=== PATIENT | female | born 1995 | race Hispanic/Latino ===

== ENCOUNTER 2024-03-16 02:36 | Inpatient (IN) | payer BC ==
[2024-03-16 02:52] VITALS: BMI 42.9
[2024-03-16 06:46] LABS: Creatinine, Urine 107.03 mg/dL (47-110); Protein, Urine Random Quant Less than 10 mg/dL (1-14)
[2024-03-16] MEDS ORDERED: Misoprostol 200 MCG TAB PR PRN (08:11)
[2024-03-16] MEDS ORDERED: Calcium Gluc 4.6 MEQ/10 ML (100 MG/ML) SLOW IVP PRN (08:11)
[2024-03-16] MEDS ORDERED: hydrALAZINE 20 MG/ML VIAL SLOW IVP PRN ×3 (08:11)
[2024-03-16] MEDS ORDERED: Tranexamic Acid 1,000 MG/10 ML VIAL IVP PRN (08:11)
[2024-03-16] MEDS ORDERED: Ondansetron PF 4 MG/2 ML Vial IVP PRN (08:11)
[2024-03-16] MEDS ORDERED: fentaNYL 50 mcg/mL 1 mL Vial SLOW IVP PRN (08:11)
[2024-03-16] MEDS ORDERED: Promethazine HCl 25 MG/ML VIAL IM PRN (08:11)
[2024-03-16] MEDS ORDERED: Docusate 100 MG CAP PO PRN (08:11)
[2024-03-16] MEDS ORDERED: Carboprost 250 MCG/ML AMP IM PRN (08:11)
[2024-03-16] MEDS ORDERED: Diphenoxylate HCl/Atropine Tablet PO PRN (08:11)
[2024-03-16] MEDS ORDERED: Lorazepam 2 MG/ML VIAL SLOW IVP PRN (08:11)
[2024-03-16] MEDS ORDERED: Labetalol HCl 100 MG/20 ML VIAL SLOW IVP PRN ×2 (08:11)
[2024-03-16] MEDS ORDERED: Oxytocin 30 units/NS 500 ML 500 ML IV SCH (08:15)
[2024-03-16] MEDS ORDERED: Glucagon 1 MG/ML KIT IM PRN (08:18)
[2024-03-16] MEDS ORDERED: Insulin Lispro 100 UNIT/ML 10 ML VIAL SC PRN (08:18)
[2024-03-16] MEDS ORDERED: Dextrose 5% in Water 1,000 ML IV PRN (08:18)
[2024-03-16] MEDS ORDERED: Dextrose 50% Abboject 50 ML SYRINGE SLOW IVP PRN (08:18)
[2024-03-16] MEDS: metFORMIN 500 MG TAB PO SCH (08:33)
[2024-03-16] MEDS: Magnesium Sulfate 20 gm/500 ml 20 GM/500 ML BAG IVPB SCH (08:33)
[2024-03-16] MEDS: Betamet Acet/Betamet Na Ph 30 MG/5 ML VIAL IM SCH (08:33)
[2024-03-16] MEDS: Lantus 1000 UNITS/10 ML VIAL SC SCH ×2 (10:08→20:50)
[2024-03-16] MEDS: Insulin Lispro 100 UNIT/ML 10 ML VIAL SC PRN (11:58)
[2024-03-18] MEDS: Lantus 1000 UNITS/10 ML VIAL SC SCH ×2 (08:19→21:30)
[2024-03-18 14:41] LABS: Group B Streptococcus by PCR Not Detected (NotDetected)
[2024-03-20 12:09] LABS: #Basophils 0.01 10x3/uL (0.0-0.2); #Eosinophils 0.06 10x3/uL (0.0-0.5); #Monocytes 0.77 10x3/uL (0.0-1.1); #Neutrophils 8.39 10x3/uL (1.5-8.4); %Basophils 0.1 % (0.0-2.0); %Eosinophils 0.5 % (0.0-6.0); %Lymphocytes 26.1 % (18.0-47.0); %Monocytes 6.1 % (0.0-10.0); %Neutrophils 66.4 % (40.0-75.0); Hematocrit 32.3 % (34.9-44.5); Hemoglobin 10.2 g/dL (12.0-15.5); Mean Corpuscular HGB CONC 31.6 g/dL (32.0-36.0); Mean Corpuscular Hemoglobin 25.8 pg (27.0-33.0); Mean Corpuscular Volume 81.6 fL (81.6-98.3); Mean Platelet Volume 10.8 fL (7.4-10.4); Platelet Count 292 10x3/uL (150-450); RBC Distribution Width 13.2 % (11.5-14.5); Red Blood Cell (RBC) Count 3.96 10x6/uL (3.90-5.03); White Blood Cell (WBC) Count 12.6 10x3/uL (3.5-10.5)
[2024-03-20 12:29] LABS: ALT (SGPT) 11 U/L (8-55); AST (SGOT) 10 U/L (5-34); Alkaline Phosphatase 77 U/L (40-110); Anion Gap 15 mmol/L (10-20); BUN (Urea Nitrogen) 9 mg/dL (7.0-18.7); Bilirubin, Total 0.7 mg/dL (0.2-1.2); Calc. Creatinine Clearance 274 mL/min (70-130); Calcium 9.6 mg/dL (7.8-10.44); Carbon Dioxide 20 mmol/L (22-29); Chloride 104 mmol/L (98-107); Estimated GFR 127; Glucose 89 mg/dL (70-105); Potassium 3.8 mmol/L (3.5-5.1); Sodium 135 mmol/L (136-145)
[2024-03-20 14:25] LABS: Creatinine, Urine 28.82 mg/dL (47-110); Protein, Urine Random Quant Less than 10 mg/dL (1-14)
[2024-03-21] MEDS: Acetaminophen 500 MG TAB PO PRN (14:58)
[2024-03-21 15:47] VITALS: BMI 42.9
[2024-03-21 16:18] LABS: Urine Total Volume 2250 mL (600-1600)
[2024-03-21 16:31] LABS: Protein, Urine Less than 10 mg/dL (1-14)
[2024-03-21 21:33] VITALS: BP 128/80; TEMP 98.3
== END 2024-03-21 21:25 | disposition home or self-care (01) | DRG 831 ==
LOC: CSHLD/OP 02:36 → CSHLD 09:43 → CSHANTE 03-17 15:40
PROVIDERS: ADMIT Family Medicine; ATTEND Family Medicine
DX: O24.113 Pre-existing type 2 diabetes mellitus, in pregnancy, third trimester (principal); O11.3 Pre-existing hypertension with pre-eclampsia, third trimester; Z3A.30 30 weeks gestation of pregnancy; Z79.82 Long term (current) use of aspirin; Z79.4 Long term (current) use of insulin; Z79.84 Long term (current) use of oral hypoglycemic drugs
CPT/HCPCS: 36416; 76819; 80053; 82570; 84156; 85025; 87653; J0702; J1815; J3475

== ENCOUNTER 2024-05-02 15:58 | Inpatient (IN) | payer BC ==
[2024-05-02 16:52] VITALS: BMI 45.7
[2024-05-02] MEDS ORDERED: hydrALAZINE 20 MG/ML VIAL SLOW IVP PRN (17:10)
[2024-05-02] MEDS ORDERED: Methylergonovine 0.2 MG/ML VIAL IM PRN (17:10)
[2024-05-02] MEDS ORDERED: Ibuprofen 800 MG TAB PO PRN (17:10)
[2024-05-02] MEDS ORDERED: Diphenoxylate HCl/Atropine Tablet PO PRN (17:10)
[2024-05-02] MEDS ORDERED: Promethazine HCl 25 MG/ML VIAL IM PRN (17:10)
[2024-05-02] MEDS ORDERED: Lidocaine 1% (PF) 30 ML VIAL SC PRN (17:10)
[2024-05-02] MEDS ORDERED: Ondansetron PF 4 MG/2 ML Vial IVP PRN (17:10)
[2024-05-02] MEDS ORDERED: Misoprostol 100 MCG TAB VAG SCH (17:15)
[2024-05-02] MEDS ORDERED: Insulin Lispro 100 UNIT/ML 10 ML VIAL SC PRN ×2 (17:20)
[2024-05-02] MEDS ORDERED: Dextrose 50% Abboject 50 ML SYRINGE SLOW IVP PRN (17:20)
[2024-05-02] MEDS ORDERED: Glucagon 1 MG/ML KIT IM PRN (17:20)
[2024-05-02] MEDS ORDERED: Dextrose 5% in Water 1,000 ML IV PRN (17:20)
[2024-05-02] MEDS: Misoprostol 100 MCG TAB PO SCH (17:40)
[2024-05-02 18:08] LABS: HBsAg Index 0.24 S/CO (0-0.99); Hep B Surf Ag - L&D Non-Reactive S/CO (NonReactive); Syphilis Antibody Nonreactive (Nonreactive); Syphilis Antibody Index 0.06 S/CO (<1.00 Non-Reactive)
[2024-05-02 18:15] LABS: #Basophils 0.02 10x3/uL (0.0-0.2); #Eosinophils 0.05 10x3/uL (0.0-0.5); #Monocytes 0.43 10x3/uL (0.0-1.1); #Neutrophils 5.68 10x3/uL (1.5-8.4); %Basophils 0.3 % (0.0-2.0); %Eosinophils 0.6 % (0.0-6.0); %Lymphocytes 20.5 % (18.0-47.0); %Monocytes 5.5 % (0.0-10.0); %Neutrophils 72.3 % (40.0-75.0); Hematocrit 33.6 % (34.9-44.5); Hemoglobin 10.8 g/dL (12.0-15.5); Mean Corpuscular HGB CONC 32.1 g/dL (32.0-36.0); Mean Corpuscular Hemoglobin 26.2 pg (27.0-33.0); Mean Corpuscular Volume 81.6 fL (81.6-98.3); Mean Platelet Volume 11.9 fL (7.4-10.4); Platelet Count 250 10x3/uL (150-450); RBC Distribution Width 16.1 % (11.5-14.5); Red Blood Cell (RBC) Count 4.12 10x6/uL (3.90-5.03); White Blood Cell (WBC) Count 7.9 10x3/uL (3.5-10.5)
[2024-05-02 18:25] LABS: ALT (SGPT) 7 U/L (8-55); AST (SGOT) 11 U/L (5-34); Alkaline Phosphatase 123 U/L (40-110); Anion Gap 15 mmol/L (10-20); BUN (Urea Nitrogen) 9 mg/dL (7.0-18.7); Bilirubin, Total 0.7 mg/dL (0.2-1.2); Calc. Creatinine Clearance 255 mL/min (70-130); Carbon Dioxide 18 mmol/L (22-29); Chloride 107 mmol/L (98-107); Estimated GFR 123; Globulin 3.5 g/dL (2.4-3.5); Glucose 140 mg/dL (70-105); Potassium 3.8 mmol/L (3.5-5.1); Protein, Total 6.5 g/dL (6.0-8.3); Sodium 136 mmol/L (136-145)
[2024-05-02] MEDS: metFORMIN 500 MG TAB PO SCH (20:53)
[2024-05-03] MEDS: Oxytocin 30 units/NS 500 ML 500 ML IV SCH (06:03)
[2024-05-03] MEDS: metFORMIN 500 MG TAB PO SCH (17:02)
[2024-05-03] MEDS: fentaNYL/Ropivacaine Epidural 100 ML ONE (18:19)
[2024-05-03] MEDS ORDERED: Moisturizing Cream (Eucerin) 113 GM JAR TOP PRN ×2 (18:31→22:22)
[2024-05-03] MEDS ORDERED: Acetaminophen 325 MG TAB PO PRN (18:31)
[2024-05-03] MEDS ORDERED: Promethazine HCl 25 MG/ML VIAL IM PRN ×2 (18:31→22:22)
[2024-05-03] MEDS ORDERED: diphenhydrAMINE 50 MG/ML VIAL IVP PRN ×2 (18:31→22:22)
[2024-05-03] MEDS ORDERED: Ondansetron PF 4 MG/2 ML Vial IVP PRN ×3 (18:31→22:22)
[2024-05-03] MEDS ORDERED: Lactated Ringer's 500 ML IV PRN (18:31)
[2024-05-03] MEDS ORDERED: ePHEDrine Sulfate 50 MG/10 ML VIAL SLOW IVP PRN (18:31)
[2024-05-03] MEDS ORDERED: Naloxone HCl 0.4 mg/ml Vial IVP PRN ×4 (18:31→22:22)
[2024-05-03] MEDS ORDERED: Communication Order-Pharmacy FS SCH ×2 (18:45→22:30)
[2024-05-03] MEDS ORDERED: fentaNYL 2 mcg/Ropivacaine 0.2% Epidural 100 ML CADD EPIDURAL SCH (18:45)
[2024-05-03] MEDS ORDERED: Famotidine/PF 20 mg/2ml Vial SLOW IVP PRN (20:50)
[2024-05-03] MEDS ORDERED: Bicitra 30 ML UDCUP PO PRN (20:50)
[2024-05-03] MEDS ORDERED: Azithromycin 500 MG in Sodium Chloride 0.9% 250 ML 250 ML IVPB SCH (21:30)
[2024-05-03] MEDS ORDERED: CEFAZOLIN 2 GM in Sodium Chloride 0.9% 100 ML IVPB SCH (21:30)
[2024-05-03] MEDS ORDERED: Naloxone HCl 0.4 mg/ml Vial IV PRN (22:22)
[2024-05-03] MEDS ORDERED: fentaNYL 50 mcg/mL 1 mL Vial SLOW IVP PRN (22:22)
[2024-05-03] MEDS ORDERED: Simethicone Chewable 80 MG TAB PO PRN (22:28)
[2024-05-03] MEDS ORDERED: Bisacodyl 10 MG SUPP PR PRN (22:28)
[2024-05-03] MEDS ORDERED: Lanolin Ointment 7 GM TUBE TOP PRN (22:28)
[2024-05-03] MEDS ORDERED: hydrALAZINE 20 MG/ML VIAL SLOW IVP PRN (22:28)
[2024-05-03] MEDS ORDERED: diphenhydrAMINE 25 MG CAP PO PRN (22:28)
[2024-05-03] MEDS ORDERED: HYDROcodone/Acetaminophen 5/325 mg Tablet PO PRN ×2 (22:28)
[2024-05-03] MEDS: Meperidine HCl/PF 25 MG (1 mL) VIAL SLOW IVP PRN (22:58)
[2024-05-03] MEDS ORDERED: Ketorolac Tromethamine 30 MG (1 mL) VIAL IVP SCH (23:30)
[2024-05-04] MEDS: Misoprostol 200 MCG TAB PR PRN (00:04)
[2024-05-04] MEDS: Diphenoxylate HCl/Atropine Tablet PO PRN (00:42)
[2024-05-04] MEDS: Carboprost 250 MCG/ML AMP IM PRN (00:43)
[2024-05-04] MEDS: Tranexamic Acid 1,000 MG/10 ML VIAL IVP PRN (01:04)
[2024-05-04 01:13] LABS: #Basophils 0.02 10x3/uL (0.0-0.2); #Eosinophils 0.01 10x3/uL (0.0-0.5); #Neutrophils 12.08 10x3/uL (1.5-8.4); %Basophils 0.1 % (0.0-2.0); %Eosinophils 0.1 % (0.0-6.0); %Monocytes 3.6 % (0.0-10.0); %Neutrophils 86.7 % (40.0-75.0); Hematocrit 27.5 % (34.9-44.5); Mean Corpuscular HGB CONC 32.7 g/dL (32.0-36.0); Mean Corpuscular Hemoglobin 26.5 pg (27.0-33.0); Mean Corpuscular Volume 81.1 fL (81.6-98.3); Mean Platelet Volume 11.9 fL (7.4-10.4); Platelet Count 231 10x3/uL (150-450); RBC Distribution Width 15.9 % (11.5-14.5); Red Blood Cell (RBC) Count 3.39 10x6/uL (3.90-5.03); White Blood Cell (WBC) Count 13.9 10x3/uL (3.5-10.5)
[2024-05-04 01:29] LABS: D-Dimer Test 3.82 mcg/mL (0.19-0.50); PTT 26.9 sec (22.0-33.0); Prothrombin Time 10.5 sec (9.5-12.1)
[2024-05-04 04:03] LABS: #Basophils 0.02 10x3/uL (0.0-0.2); #Eosinophils 0.06 10x3/uL (0.0-0.5); #Monocytes 0.64 10x3/uL (0.0-1.1); #Neutrophils 11.82 10x3/uL (1.5-8.4); %Basophils 0.1 % (0.0-2.0); %Eosinophils 0.4 % (0.0-6.0); %Lymphocytes 8.5 % (18.0-47.0); %Monocytes 4.6 % (0.0-10.0); %Neutrophils 85.8 % (40.0-75.0); Hematocrit 28.1 % (34.9-44.5); Hemoglobin 9.2 g/dL (12.0-15.5); Mean Corpuscular HGB CONC 32.7 g/dL (32.0-36.0); Mean Corpuscular Hemoglobin 26.5 pg (27.0-33.0); Platelet Count 205 10x3/uL (150-450); RBC Distribution Width 15.6 % (11.5-14.5); Red Blood Cell (RBC) Count 3.47 10x6/uL (3.90-5.03); White Blood Cell (WBC) Count 13.8 10x3/uL (3.5-10.5)
[2024-05-04 04:16] LABS: PTT 28.6 sec (22.0-33.0); Prothrombin Time 10.6 sec (9.5-12.1)
[2024-05-04 04:19] LABS: ALT (SGPT) 7 U/L (8-55); AST (SGOT) 16 U/L (5-34); Albumin 2.2 g/dL (3.5-5.0); Alkaline Phosphatase 88 U/L (40-110); Anion Gap 13 mmol/L (10-20); BUN (Urea Nitrogen) 12 mg/dL (7.0-18.7); Bilirubin, Total 1.8 mg/dL (0.2-1.2); Calc. Creatinine Clearance 287 mL/min (70-130); Calcium 7.8 mg/dL (7.8-10.44); Carbon Dioxide 16 mmol/L (22-29); Chloride 106 mmol/L (98-107); Estimated GFR 126; Globulin 2.7 g/dL (2.4-3.5); Glucose 159 mg/dL (70-105); Potassium 4.1 mmol/L (3.5-5.1); Protein, Total 4.9 g/dL (6.0-8.3); Sodium 131 mmol/L (136-145)
[2024-05-04 04:52] LABS: D-Dimer Test 2.95 mcg/mL (0.19-0.50)
[2024-05-04] MEDS: Ketorolac Tromethamine 30 MG (1 mL) VIAL IVP SCH (05:39)
[2024-05-04] MEDS: Azithromycin 500 MG VIAL ONE (07:50)
[2024-05-04] MEDS: PHENYLEPHRINE-NS 100 MCG/ML 10 ML SYRINGE ONE ×2 (07:50→07:52)
[2024-05-04] MEDS: Metoclopramide HCl 10 MG (2 mL) VIAL ONE (07:51)
[2024-05-04] MEDS: Dexamethasone 10 MG/ML VIAL ONE (07:51)
[2024-05-04] MEDS: Tranexamic Acid 1,000 MG/10 ML VIAL ONE (07:51)
[2024-05-04] MEDS: CEFAZOLIN 2 GM VIAL ONE (07:51)
[2024-05-04] MEDS: Morphine PF 10 MG/10 ML VIAL ONE (07:51)
[2024-05-04] MEDS: Ondansetron PF 4 MG/2 ML Vial ONE (07:51)
[2024-05-04] MEDS: Promethazine HCl 25 MG/ML VIAL ONE ×2 (07:51)
[2024-05-04] MEDS: Phenylephrine 10 MG/ML VIAL ONE (07:52)
[2024-05-04] MEDS: Oxytocin 10 UNITS/ML VIAL ONE (07:52)
[2024-05-04] MEDS: Ketorolac Tromethamine 30 MG (1 mL) VIAL ONE (07:52)
[2024-05-04] MEDS: Boostrix 0.5 ML (Tdap) VIAL (>/=7 yrs of age) IM ONE (07:52)
[2024-05-04] MEDS: Esmolol 100 MG/10 ML VIAL ONE (07:53)
[2024-05-04] MEDS: fentaNYL 50 mcg/mL 1 mL Vial ONE (07:53)
[2024-05-04] MEDS: KETAMINE 100 MG/ML (5ML VIAL) ONE (07:53)
[2024-05-04] MEDS: Docusate 100 MG CAP PO SCH (08:12)
[2024-05-04] MEDS: Ferrous Sulfate 325 MG TAB PO SCH (08:12)
[2024-05-04] MEDS: Lactated Ringer's 1,000 ML IV SCH (12:45)
[2024-05-04 13:31] LABS: #Basophils 0.02 10x3/uL (0.0-0.2); #Eosinophils 0.03 10x3/uL (0.0-0.5); #Monocytes 0.89 10x3/uL (0.0-1.1); #Neutrophils 8.42 10x3/uL (1.5-8.4); %Basophils 0.2 % (0.0-2.0); %Eosinophils 0.3 % (0.0-6.0); %Monocytes 7.5 % (0.0-10.0); %Neutrophils 70.6 % (40.0-75.0); Hematocrit 22.2 % (34.9-44.5); Hemoglobin 7.5 g/dL (12.0-15.5); Mean Corpuscular HGB CONC 33.8 g/dL (32.0-36.0); Mean Corpuscular Hemoglobin 27.3 pg (27.0-33.0); Mean Corpuscular Volume 80.7 fL (81.6-98.3); Mean Platelet Volume 11.9 fL (7.4-10.4); Platelet Count 182 10x3/uL (150-450); RBC Distribution Width 15.6 % (11.5-14.5); Red Blood Cell (RBC) Count 2.75 10x6/uL (3.90-5.03); White Blood Cell (WBC) Count 11.9 10x3/uL (3.5-10.5)
[2024-05-04 14:30] LABS: Hematocrit 22.6 % (34.9-44.5); Hemoglobin 7.5 g/dL (12.0-15.5); Mean Corpuscular HGB CONC 33.2 g/dL (32.0-36.0); Mean Corpuscular Hemoglobin 26.7 pg (27.0-33.0); Mean Corpuscular Volume 80.4 fL (81.6-98.3); Mean Platelet Volume 11.8 fL (7.4-10.4); Platelet Count 184 10x3/uL (150-450); RBC Distribution Width 15.7 % (11.5-14.5); Red Blood Cell (RBC) Count 2.81 10x6/uL (3.90-5.03); White Blood Cell (WBC) Count 13.1 10x3/uL (3.5-10.5)
[2024-05-04 14:42] LABS: ALT (SGPT) 7 U/L (8-55); AST (SGOT) 16 U/L (5-34); Alkaline Phosphatase 73 U/L (40-110); Anion Gap 13 mmol/L (10-20); BUN (Urea Nitrogen) 18 mg/dL (7.0-18.7); Bilirubin, Total 0.9 mg/dL (0.2-1.2); Calc. Creatinine Clearance 221 mL/min (70-130); Calcium 8.1 mg/dL (7.8-10.44); Carbon Dioxide 17 mmol/L (22-29); Chloride 106 mmol/L (98-107); Estimated GFR 112; Globulin 2.6 g/dL (2.4-3.5); Glucose 107 mg/dL (70-105); Potassium 4.1 mmol/L (3.5-5.1); Protein, Total 4.6 g/dL (6.0-8.3); Sodium 132 mmol/L (136-145)
[2024-05-04 21:45] LABS: #Basophils 0.02 10x3/uL (0.0-0.2); #Eosinophils 0.04 10x3/uL (0.0-0.5); #Monocytes 0.48 10x3/uL (0.0-1.1); #Neutrophils 6.68 10x3/uL (1.5-8.4); %Basophils 0.2 % (0.0-2.0); %Eosinophils 0.4 % (0.0-6.0); %Lymphocytes 24.7 % (18.0-47.0); %Monocytes 4.9 % (0.0-10.0); %Neutrophils 68.5 % (40.0-75.0); Hematocrit 22.4 % (34.9-44.5); Hemoglobin 7.6 g/dL (12.0-15.5); Mean Corpuscular HGB CONC 33.9 g/dL (32.0-36.0); Mean Corpuscular Hemoglobin 26.9 pg (27.0-33.0); Mean Corpuscular Volume 79.2 fL (81.6-98.3); Mean Platelet Volume 11.6 fL (7.4-10.4); Platelet Count 147 10x3/uL (150-450); Red Blood Cell (RBC) Count 2.83 10x6/uL (3.90-5.03); White Blood Cell (WBC) Count 9.8 10x3/uL (3.5-10.5)
[2024-05-05 05:17] LABS: #Basophils 0.03 10x3/uL (0.0-0.2); #Eosinophils 0.05 10x3/uL (0.0-0.5); #Monocytes 0.59 10x3/uL (0.0-1.1); #Neutrophils 6.22 10x3/uL (1.5-8.4); %Basophils 0.3 % (0.0-2.0); %Eosinophils 0.5 % (0.0-6.0); %Lymphocytes 26.9 % (18.0-47.0); %Monocytes 6.2 % (0.0-10.0); %Neutrophils 65.6 % (40.0-75.0); Hematocrit 21.8 % (34.9-44.5); Hemoglobin 7.1 g/dL (12.0-15.5); Mean Corpuscular HGB CONC 32.6 g/dL (32.0-36.0); Mean Corpuscular Hemoglobin 26.5 pg (27.0-33.0); Mean Corpuscular Volume 81.3 fL (81.6-98.3); RBC Distribution Width 16.5 % (11.5-14.5); Red Blood Cell (RBC) Count 2.68 10x6/uL (3.90-5.03); White Blood Cell (WBC) Count 9.5 10x3/uL (3.5-10.5)
[2024-05-05 05:19] LABS: Mean Platelet Volume 11.5 fL (7.4-10.4); Platelet Count 152 10x3/uL (150-450)
[2024-05-05] MEDS: Ibuprofen 800 MG TAB PO SCH (15:04)
[2024-05-05 17:15] LABS: Hemoglobin A1c 5.5 % (4.0-6.0)
[2024-05-05 18:24] LABS: Hematocrit 21.8 % (34.9-44.5); Hemoglobin 7.2 g/dL (12.0-15.5)
[2024-05-05] MEDS: Acetaminophen 500 MG TAB PO SCH (22:47)
[2024-05-05] MEDS: Iron Sucrose Complex 500 MG in Sodium Chloride 0.9% 250 ML 250 ML IVPB SCH (23:25)
[2024-05-06 04:56] LABS: #Basophils 0.03 10x3/uL (0.0-0.2); #Eosinophils 0.06 10x3/uL (0.0-0.5); #Monocytes 0.68 10x3/uL (0.0-1.1); #Neutrophils 6.88 10x3/uL (1.5-8.4); %Basophils 0.3 % (0.0-2.0); %Eosinophils 0.6 % (0.0-6.0); %Lymphocytes 26.9 % (18.0-47.0); %Monocytes 6.4 % (0.0-10.0); %Neutrophils 64.9 % (40.0-75.0); Hematocrit 21.4 % (34.9-44.5); Hemoglobin 6.9 g/dL (12.0-15.5); Mean Corpuscular HGB CONC 32.2 g/dL (32.0-36.0); Mean Corpuscular Volume 80.8 fL (81.6-98.3); Mean Platelet Volume 11.3 fL (7.4-10.4); Platelet Count 167 10x3/uL (150-450); RBC Distribution Width 17.2 % (11.5-14.5); Red Blood Cell (RBC) Count 2.65 10x6/uL (3.90-5.03); White Blood Cell (WBC) Count 10.6 10x3/uL (3.5-10.5)
[2024-05-06 08:04] LABS: ALT (SGPT) 8 U/L (8-55); AST (SGOT) 14 U/L (5-34); Albumin 2.2 g/dL (3.5-5.0); Alkaline Phosphatase 74 U/L (40-110); Anion Gap 13 mmol/L (10-20); BUN (Urea Nitrogen) 7 mg/dL (7.0-18.7); Bilirubin, Total 0.5 mg/dL (0.2-1.2); Calc. Creatinine Clearance 287 mL/min (70-130); Calcium 8.2 mg/dL (7.8-10.44); Carbon Dioxide 22 mmol/L (22-29); Chloride 109 mmol/L (98-107); Estimated GFR 126; Globulin 3.2 g/dL (2.4-3.5); Glucose 88 mg/dL (70-105); Potassium 3.6 mmol/L (3.5-5.1); Protein, Total 5.4 g/dL (6.0-8.3); Sodium 140 mmol/L (136-145)
[2024-05-06 08:08] LABS: D-Dimer Test 2.65 mcg/mL (0.19-0.50); INR-International Normal Ratio 0.9; PTT 28.5 sec (22.0-33.0); Prothrombin Time 9.8 sec (9.5-12.1)
[2024-05-06] MEDS ORDERED: Carboprost 250 MCG/ML AMP ONE (14:10)
[2024-05-06] MEDS ORDERED: Misoprostol 200 MCG TAB ONE (14:10)
[2024-05-06] MEDS ORDERED: Methylergonovine 0.2 MG/ML VIAL ONE (14:10)
[2024-05-06] MEDS ORDERED: Tranexamic Acid 1,000 MG/10 ML VIAL ONE (14:10)
[2024-05-06] MEDS ORDERED: Silver Nitrate Application 1 EACH ONE (14:15)
[2024-05-06] MEDS ORDERED: Doxycycline 100 MG CAP PO ONE (14:38)
[2024-05-06] MEDS ORDERED: Famotidine/PF 20 mg/2ml Vial ONE (14:42)
[2024-05-06] MEDS ORDERED: Lidocaine 2% PF 5 ML VIAL ONE (14:43)
[2024-05-06] MEDS ORDERED: PROPOFOL 20 ML ONE (14:43)
[2024-05-06] MEDS ORDERED: fentaNYL 50 mcg/mL 1 mL Vial ONE ×3 (14:44→16:45)
[2024-05-06] MEDS ORDERED: Dexamethasone 4 mg/ml Vial ONE (14:45)
[2024-05-06] MEDS ORDERED: DOXYCYCLINE IVPB SCH (14:45)
[2024-05-06] MEDS ORDERED: SODIUM CHLORIDE 0.9% IVPB SCH (14:45)
[2024-05-06] MEDS ORDERED: Ondansetron PF 4 MG/2 ML Vial ONE (14:45)
[2024-05-06] MEDS ORDERED: CEFAZOLIN 2 GM VIAL ONE (14:49)
[2024-05-06 15:16] LABS: Hematocrit 25.6 % (34.9-44.5); Hemoglobin 8.6 g/dL (12.0-15.5); Mean Corpuscular HGB CONC 33.6 g/dL (32.0-36.0); Mean Corpuscular Hemoglobin 27.5 pg (27.0-33.0); Mean Corpuscular Volume 81.8 fL (81.6-98.3); Mean Platelet Volume 11.1 fL (7.4-10.4); Platelet Count 177 10x3/uL (150-450); RBC Distribution Width 16.9 % (11.5-14.5); Red Blood Cell (RBC) Count 3.13 10x6/uL (3.90-5.03); White Blood Cell (WBC) Count 11.3 10x3/uL (3.5-10.5)
[2024-05-06] MEDS ORDERED: Meperidine HCl/PF 25 MG (1 mL) VIAL ONE (15:41)
[2024-05-06] MEDS ORDERED: Ketorolac Tromethamine 30 MG (1 mL) VIAL ONE (15:41)
[2024-05-06] MEDS: Misoprostol 200 MCG TAB PR SCH (15:58)
[2024-05-06] MEDS: CEFAZOLIN 2 GM in Sodium Chloride 0.9% 100 ML IVPB SCH (15:58)
[2024-05-06] MEDS: Lactated Ringer's 1,000 ML IV SCH (17:57)
[2024-05-06 21:46] LABS: Hematocrit 28.9 % (34.9-44.5); Hemoglobin 9.7 g/dL (12.0-15.5)
[2024-05-07 11:15] VITALS: BP 131/73; TEMP 97.7
[2024-05-07 11:42] LABS: Hematocrit 28.8 % (34.9-44.5); Hemoglobin 9.1 g/dL (12.0-15.5)
== END 2024-05-07 13:55 | disposition home or self-care (01) | DRG 787 ==
LOC: CSHLD/OP 15:58 → CSHLD 17:11 → CSHPP 05-04 05:05
PROVIDERS: ADMIT Obstetrics & Gynecology; ATTEND Obstetrics & Gynecology
PROC: 10907ZC Drainage of Amniotic Fluid, Therapeutic from Products of Conception, Via Natural or Artificial Opening (ICD-10-PCS; principal; 2024-05-03)
PROC: 10D00Z1 Extraction of Products of Conception, Low, Open Approach (ICD-10-PCS; 2024-05-03)
PROC: 10H07YZ Insertion of Other Device into Products of Conception, Via Natural or Artificial Opening (ICD-10-PCS; 2024-05-03)
PROC: 0W3R0ZZ Control Bleeding in Genitourinary Tract, Open Approach (ICD-10-PCS; 2024-05-04)
PROC: 10D17ZZ Extraction of Products of Conception, Retained, Via Natural or Artificial Opening (ICD-10-PCS; 2024-05-06)
DX: O13.4 Gestational [pregnancy-induced] hypertension without significant proteinuria, complicating childbirth (principal); D62 Acute posthemorrhagic anemia; E87.1 Hypo-osmolality and hyponatremia; O99.214 Obesity complicating childbirth; O24.429 Gestational diabetes mellitus in childbirth, unspecified control; Z3A.36 36 weeks gestation of pregnancy; O76 Abnormality in fetal heart rate and rhythm complicating labor and delivery; O64.0XX0 Obstructed labor due to incomplete rotation of fetal head, not applicable or unspecified; O72.2 Delayed and secondary postpartum hemorrhage; Z37.0 Single live birth; O99.284 Endocrine, nutritional and metabolic diseases complicating childbirth
CPT/HCPCS: 36415; 36416; 36430; 51702; 76700; 76856; 80053; 82247; 82248; 82570; 83010; 83036; 83615; 84156; 84443; 85014; 85018; 85025; 85046; 85049; 85300; 85362; 85384; 85610; 85730; 86780; 86850; 86900; 86901; 87340; 88305; 99285; J1100; J1756; J1885; J2175; J2210; J2274; J2371; J2405; J2550; J2590; J2704; J2765; J3010; J3490; J7050; J7120; P9012; P9016